=== PATIENT | female | born 1945 | race Caucasian/White ===

== ENCOUNTER → 2019-12-05 | Outpatient (CLI) | payer OTHER ==
[~2019-12-05] MED LIST: ACTOS PO; ADVAIR 100-501 EACH; ADVAIR 250-501 EACH INH; ALBUTEROL INHAL17 GM IH; ALEVE220 MG PO; ALPRAZOLAM PO; ALTACE PO; ALTACE5 M1; ASPIRIN81 M2 PO; BACTRIM DS TAB1 EACH PO; CLARITIN10 MG PO; COLACE100 MG PO; COUMADIN 2.5MG2.5 M1 PO; COUMADIN 5 MG TA5 M1 PO; CRESTOR5 MG PO; DILTIAZEM ER180 M1; DILTIAZEM ER180 M1 PO; FLEXERIL PO; HUMALOG100 UNIT/1; HUMALOG100 UNIT/1 SQ; IBUPROFEN 200200 M1 PO; IBUPROFEN 600600 M1 PO; INDAPAMIDE2.5 MG; INDAPAMIDE2.5 MG PO; LANTUS SC; LANTUS SUBQ; LEVBID0.375 MG PO; LEVOTHROID PO; LEVOTHYROXINE 0.1 MG PO; LEVOXYL88 MCG PO; LOZOL PO; LUMIGAN2.5 M1; MAGNESIUM400 M1 PO; MAXZIDE 75-501 EACH PO; MIRALAX17 G1 PO; NEXIUM40 MG PO; NORCO 5-325 TA1 EACH PO; NOVOLOG100 UNIT/1 SQ; PERCOCET 5-3251 EACH PO; PHILLIPS' COLO1 EACH PO; POTASSIUM20 PO; PRILOSEC 20 MG20 MG PO; SINGULAIR 10 MG10 M1 PO; SINGULAIR4 MG PO; SORINE 80 MG TA80 M1 PO; SOTALOL 120 MG120 MG PO; TIZANIDINE HCL4 MG PO; ULTRACET TABLET1 TAB PO; XANAX 0.25 MG0.25 MG PO; ZOFRAN ODT4 MG PO
[2019-12-05 16:10] LABS: CREATININE 0.8 mg/dL (0.6-1.3)
== END ==
LOC: M.CT 15:36
PROVIDERS: Internal Medicine
DX: K76.0 Fatty (change of) liver, not elsewhere classified (principal); K42.9 Umbilical hernia without obstruction or gangrene; J98.11 Atelectasis; I51.7 Cardiomegaly; I25.10 Atherosclerotic heart disease of native coronary artery without angina pectoris; N28.1 Cyst of kidney, acquired; M47.816 Spondylosis without myelopathy or radiculopathy, lumbar region; Z96.642 Presence of left artificial hip joint; Z90.710 Acquired absence of both cervix and uterus

== ENCOUNTER 2020-05-19 22:12 | Emergency (ER) | payer OTHER ==
[~2020-05-19] VITALS: Ht 162.6 cm; Wt 104.3 kg
[2020-05-19 22:38] LABS: URINE BILIRUBIN NEGATIVE (Negative); URINE BLOOD NEGATIVE (Negative); URINE CLARITY CLEAR; URINE COLOR YELLOW; URINE GLUCOSE-RANDOM NEGATIVE (Negative); URINE KETONES NEGATIVE (Negative); URINE LEUKOCYTES-REFLEX TRACE (Negative); URINE NITRITE-REFLEX NEGATIVE (Negative); URINE PROTEIN TRACE (Negative); URINE SPECIFIC GRAVITY 1.015 (1.005-1.030); URINE UROBILINOGEN 0.2 E.U./dl (0.2-1.0)
[2020-05-19] MEDS ORDERED: PROTONIX40 M2 PO (22:55)
[2020-05-19] MEDS ORDERED: XARELTO20 MG PO (22:55)
[2020-05-19] MEDS ORDERED: KRILL OIL500 MG PO (22:56)
[2020-05-19] MEDS ORDERED: REQUIP 0.25 M0.25 MG PO (22:56)
[2020-05-19] MEDS ORDERED: CENTRUM WOMEN1 EACH PO (22:57)
[2020-05-19 22:58] LABS: MUCUS None Seen strn/LPF (None Seen); SQUAMOUS 4-10 Moderate /LPF (0-3); URINE RBC None Seen /HPF (0-2); URINE WBC-REFLEX 0-5 Rare /HPF (0-5)
[2020-05-19] MEDS ORDERED: VITAMIN D31250 MC1 PO (22:58)
[2020-05-19 22:59] LABS: BACTERIA-REFLEX 1-9 Few /HPF (None Seen); CASTS None Seen /LPF (None Seen); CRYSTALS None Seen /LPF (None Seen)
[2020-05-19 23:02] LABS: ABSOLUTE EOSINOPHILS 0.1 thou/uL (0.0-0.7); ABSOLUTE LYMPHOCYTES 1.1 thou/uL (0.8-5.3); ABSOLUTE MONOCYTES 0.5 thou/uL (0.0-1.2); ABSOLUTE NEUTROPHILS 7.5 thou/uL (1.6-8.1); BASOPHILS 0.3 %; EOSINOPHILS 0.7 %; HEMATOCRIT 36.2 % (37.0-47.0); HEMOGLOBIN 11.9 gm/dL (12.0-15.0); LYMPHOCYTES 11.7 %; MCHC 32.8 g/dL (28.0-37.0); MCV 82.3 fL (80.0-100.0); MONOCYTES 5.7 %; MPV 8.5 fl. (7.2-11.1); NUCLEATED RBCS 0 /100WBC; PLATELET COUNT* 362 thou/uL (150-400); POLYS 81.6 %; RBC 4.39 mil/uL (4.20-5.00); RDW-CV 15.5 % (10.5-14.5); WBC 9.1 thou/uL (4.0-11.0)
[2020-05-19 23:21] LABS: CALCIUM 9.6 mg/dL (8.5-10.1); CREATININE 1.1 mg/dL (0.6-1.3); POTASSIUM 3.5 mmol/L (3.5-5.1)
[2020-05-19 23:30] LABS: ALBUMIN 3.4 g/dL (3.4-5.0); MAGNESIUM 1.7 mg/dL (1.8-2.4); TOTAL BILIRUBIN 0.4 mg/dL (<0.1-1.0); TOTAL PROTEIN 7.3 g/dL (6.4-8.2)
[2020-05-20] MEDS ORDERED: FLAGYL500 M1 PO (01:00)
[2020-05-20] MEDS ORDERED: REGLAN 10 MG TA10 MG PO (01:00)
[2020-05-20 01:30] VITALS: BP 161/88
== END 2020-05-20 01:34 | disposition home or self-care (01) ==
LOC: M.ERS 22:12
PROVIDERS: Emergency Medicine
DX: R10.32 Left lower quadrant pain (principal); I10 Essential (primary) hypertension; I48.91 Unspecified atrial fibrillation; E10.9 Type 1 diabetes mellitus without complications; E28.2 Polycystic ovarian syndrome; E03.9 Hypothyroidism, unspecified; K21.9 Gastro-esophageal reflux disease without esophagitis; K58.9 Irritable bowel syndrome, unspecified; J45.909 Unspecified asthma, uncomplicated; Z90.710 Acquired absence of both cervix and uterus; Z91.010 Allergy to peanuts; Z88.1 Allergy status to other antibiotic agents; Z88.6 Allergy status to analgesic agent; Z88.8 Allergy status to other drugs, medicaments and biological substances

== ENCOUNTER 2020-09-02 21:54 | Inpatient (IN) | payer OTHER ==
[~2020-09-02] VITALS: Ht 162.6 cm; Wt 104.3 kg
[~2020-09-02 21:54] MED LIST changes: +CENTRUM WOMEN1 EACH PO; +FLAGYL500 M1 PO; +KRILL OIL500 MG PO; -LEVOTHYROXINE 0.1 MG PO; +PROTONIX40 M2 PO; +REGLAN 10 MG TA10 MG PO; +REQUIP 0.25 M0.25 MG PO; +SYNTHROID100 MC1 PO; +VITAMIN D31250 MC1 PO; +XARELTO20 MG PO
[2020-09-02 21:59] VITALS: BP 150/51
[2020-09-02] MEDS ORDERED: MULTAQ 400 MG400 MG PO (22:23)
[2020-09-02 22:28] LABS: ABSOLUTE LYMPHOCYTES 1.5 thou/uL (0.8-5.3); ABSOLUTE MONOCYTES 0.5 thou/uL (0.0-1.2); ABSOLUTE NEUTROPHILS 5.2 thou/uL (1.6-8.1); BASOPHILS 0.6 %; EOSINOPHILS 0.7 %; HEMATOCRIT 27.9 % (37.0-47.0); HEMOGLOBIN 8.5 gm/dL (12.0-15.0); LYMPHOCYTES 21.1 %; MCH 21.9 pg (26.0-34.0); MCHC 30.3 g/dL (28.0-37.0); MCV 72.1 fL (80.0-100.0); MONOCYTES 6.5 %; MPV 8.2 fl. (7.2-11.1); NUCLEATED RBCS 0 /100WBC; PLATELET COUNT* 316 thou/uL (150-400); POLYS 71.1 %; RBC 3.87 mil/uL (4.20-5.00); RDW-CV 18.5 % (10.5-14.5); WBC 7.3 thou/uL (4.0-11.0)
[2020-09-02 22:40] LABS: CALCIUM 9.1 mg/dL (8.5-10.1); POTASSIUM 3.7 mmol/L (3.5-5.1)
[2020-09-02 22:45] LABS: ALBUMIN 3.3 g/dL (3.4-5.0); TOTAL BILIRUBIN 0.3 mg/dL (<0.1-1.0); TOTAL PROTEIN 6.9 g/dL (6.4-8.2)
[2020-09-02 22:53] LABS: HYPOCHROMASIA 1+; MICROCYTES 1+
[2020-09-02 22:54] LABS: ANISOCYTOSIS 1+; PLATELET ESTIMATE ADEQUATE; POLYCHROMASIA 1+
[2020-09-02 23:27] LABS: INR 1.3; PROTIME 13.5 Seconds (9.20-11.50)
[2020-09-02 23:48] LABS: URINE BILIRUBIN NEGATIVE (Negative); URINE BLOOD NEGATIVE (Negative); URINE CLARITY CLEAR; URINE COLOR YELLOW; URINE GLUCOSE-RANDOM NEGATIVE (Negative); URINE KETONES NEGATIVE (Negative); URINE LEUKOCYTES-REFLEX NEGATIVE (Negative); URINE NITRITE-REFLEX NEGATIVE (Negative); URINE PROTEIN TRACE (Negative); URINE SPECIFIC GRAVITY 1.025 (1.005-1.030); URINE UROBILINOGEN 0.2 E.U./dl (0.2-1.0)
[2020-09-03 00:55] VITALS: BP 141/58
[2020-09-03 01:40] VITALS: BP 149/48
[2020-09-03 07:50] VITALS: BP 152/46
[2020-09-03 09:27] LABS: CALCIUM 8.8 mg/dL (8.5-10.1); CREATININE 0.9 mg/dL (0.6-1.3)
[2020-09-03 09:28] LABS: POTASSIUM 4.7 mmol/L (3.5-5.1)
[2020-09-03 09:30] LABS: MAGNESIUM 1.9 mg/dL (1.8-2.4); PHOSPHORUS* 3.9 mg/dL (2.5-4.9)
--- NOTE | 2020-09-03 09:43 | EKG ---
[place] [address] ELECTROCARDIOGRAM REPORT Name: SUKHDEV BELLO Room: [address] ADM IN [facility]#: [id number] Admission: 09/02/20 Attend Phys: Amor Jimenez, Discharge: Date of : 47 Date of Service: 09/02/202207 Report #: [id number] THIS REPORT FOR: //name// [facility] ED Test Date: 2020-09-02 Test Time: 22:08:37 Pat Name: SUKHDEV BELLO Department: Room: [facility] Gender: F Rn Spine: MICHELLE : 1945 Requested By: Jo Valdez Order Number: [id number] MD: Sam Retana Measurements Intervals [place] Rate: 76 P: -72 ND: 193 QRS: -8 QRSD: 131 T: 52 QT: 448 QTc: 504 Interpretive Statements Sinus or ectopic atrial rhythm with first degree AV block Atrial premature complex Right bundle branch block Compared to ECG 04/10/2012 07:41:41 Ectopic atrial rhythm now present Atrial premature complex(es) now present Electronically Signed On 09-03-2020 9:42:52 BATCH TRUCKER by Sam Retana [email or web address] <ELECTRONICALLY SIGNED> By: Sam Retana MD, FACC 09/03/20 0942 07 07 Sam Retana MD, FACC /EPI
[2020-09-03 15:44] VITALS: BP 99/73
[2020-09-03 18:15] VITALS: BP 148/48
[2020-09-03 21:12] VITALS: BP 135/44
[2020-09-04 01:16] VITALS: BP 135/44
[2020-09-04 04:32] LABS: HEMOGLOBIN 7.3 gm/dL (12.0-15.0); MCHC 30.5 g/dL (28.0-37.0); MCV 72.1 fL (80.0-100.0); MPV 8.4 fl. (7.2-11.1); RBC 3.33 mil/uL (4.20-5.00); RDW-CV 18.4 % (10.5-14.5); WBC 6.9 thou/uL (4.0-11.0)
[2020-09-04 04:44] LABS: CALCIUM 8.7 mg/dL (8.5-10.1); CREATININE 0.9 mg/dL (0.6-1.3); POTASSIUM 4.1 mmol/L (3.5-5.1)
[2020-09-04 07:30] VITALS: BP 157/50
[2020-09-04 10:04] VITALS: BP 149/44; BP 152/48; BP 157/48; BP 161/52; BP 167/48
[2020-09-04 10:22] LABS: PROTIME 10.9 Seconds (9.20-11.50)
[2020-09-04 17:37] VITALS: BP 175/54
[2020-09-04 20:00] VITALS: BP 125/56
[2020-09-05 04:29] LABS: HEMATOCRIT 25.3 % (37.0-47.0); HEMOGLOBIN 7.9 gm/dL (12.0-15.0)
[2020-09-05 04:50] VITALS: BP 135/44
[2020-09-05 06:46] VITALS: BP 130/87; BP 131/46; BP 142/46
[2020-09-05 13:41] LABS: HEMOGLOBIN 8.8 gm/dL (12.0-15.0)
[2020-09-05 16:00] VITALS: BP 164/50
[2020-09-05 20:20] VITALS: BP 145/35
[2020-09-06] VITALS (7 sets, daily range): BP systolic 129–178; BP diastolic 38–62
[2020-09-06 05:07] LABS: HEMATOCRIT 24.1 % (37.0-47.0); HEMOGLOBIN 7.7 gm/dL (12.0-15.0)
[2020-09-07 04:07] LABS: HEMATOCRIT 24.6 % (37.0-47.0); HEMOGLOBIN 7.7 gm/dL (12.0-15.0)
[2020-09-07 07:30] VITALS: BP 168/39
[2020-09-07 15:47] VITALS: BP 136/41
[2020-09-07 21:25] VITALS: BP 170/38
[2020-09-08 07:15] VITALS: BP 127/30
[2020-09-08 12:16] VITALS: BP 132/37
[2020-09-08 15:45] VITALS: BP 152/42
[2020-09-08 20:30] VITALS: BP 127/29
[2020-09-08 23:36] VITALS: BP 134/51
[2020-09-09 06:15] VITALS: BP 149/39
[2020-09-09 07:45] VITALS: BP 137/35
[2020-09-09] MEDS ORDERED: CYCLOBENZAPRINE10 MG PO (08:33)
[2020-09-09] MEDS ORDERED: MIRALAX17 GM PO (08:33)
[2020-09-09] MEDS ORDERED: TRAMADOL 50 MG50 MG PO (08:33)
[2020-09-09 16:00] VITALS: BP 137/44
[2020-09-09 23:53] VITALS: BP 145/48
[2020-09-10 09:10] VITALS: BP 149/37
[2020-09-10 16:07] VITALS: BP 131/51
[2020-09-10 19:42] VITALS: BP 141/33
[2020-09-11 08:04] LABS: HEMATOCRIT 23.6 % (37.0-47.0); HEMOGLOBIN 7.4 gm/dL (12.0-15.0); MCH 24.3 pg (26.0-34.0); MCHC 31.4 g/dL (28.0-37.0); MCV 77.6 fL (80.0-100.0); MPV 7.5 fl. (7.2-11.1); RBC 3.05 mil/uL (4.20-5.00); RDW-CV 24.5 % (10.5-14.5); WBC 9.5 thou/uL (4.0-11.0)
[2020-09-11 08:08] LABS: CALCIUM 8.8 mg/dL (8.5-10.1); CREATININE 1.1 mg/dL (0.6-1.3); POTASSIUM 4.5 mmol/L (3.5-5.1)
[2020-09-11 08:10] VITALS: BP 128/50
[2020-09-11 16:00] VITALS: BP 141/61
[2020-09-11 20:30] VITALS: BP 131/45
[2020-09-12 07:15] VITALS: BP 124/32
[2020-09-12 16:20] VITALS: BP 111/20
[2020-09-12 16:50] VITALS: BP 135/74
[2020-09-12 19:40] VITALS: BP 129/22
[2020-09-12 22:00] VITALS: BP 142/39
[2020-09-13 04:40] VITALS: BP 137/32
[2020-09-13] MEDS ORDERED: VITAMIN D3-CAL1 EACH PO (06:41)
[2020-09-13 07:45] VITALS: BP 132/35
[2020-09-13 16:10] VITALS: BP 139/74
[2020-09-13 19:00] VITALS: BP 136/54
[2020-09-13 20:10] VITALS: BP 113/26
[2020-09-14 07:50] VITALS: BP 167/44
[2020-09-14 16:55] VITALS: BP 146/78
[2020-09-14 20:00] VITALS: BP 152/80
[2020-09-15 07:45] VITALS: BP 102/55
[2020-09-15 15:49] VITALS: BP 143/37
[2020-09-16 08:00] VITALS: BP 159/42
[2020-09-16 16:00] VITALS: BP 155/53
[2020-09-16 20:00] VITALS: BP 155/53
[2020-09-17 06:33] LABS: ALBUMIN 2.4 g/dL (3.4-5.0); CALCIUM 8.8 mg/dL (8.5-10.1); CREATININE 0.8 mg/dL (0.6-1.3); TOTAL BILIRUBIN 0.5 mg/dL (<0.1-1.0); TOTAL PROTEIN 6.3 g/dL (6.4-8.2)
[2020-09-17 06:34] LABS: POTASSIUM 5.5 mmol/L (3.5-5.1)
[2020-09-17 07:41] LABS: ABSOLUTE EOSINOPHILS 0.1 thou/uL (0.0-0.7); ABSOLUTE LYMPHOCYTES 0.8 thou/uL (0.8-5.3); ABSOLUTE MONOCYTES 0.5 thou/uL (0.0-1.2); BASOPHILS 0.6 %; EOSINOPHILS 1.2 %; HEMATOCRIT 27.1 % (37.0-47.0); HEMOGLOBIN 8.3 gm/dL (12.0-15.0); LYMPHOCYTES 15.6 %; MCH 24.6 pg (26.0-34.0); MCHC 30.7 g/dL (28.0-37.0); MCV 80.1 fL (80.0-100.0); MONOCYTES 9.5 %; MPV 7.7 fl. (7.2-11.1); NUCLEATED RBCS 0 /100WBC; PLATELET COUNT* 421 thou/uL (150-400); POLYS 73.1 %; RBC 3.38 mil/uL (4.20-5.00); RDW-CV 27.8 % (10.5-14.5); WBC 5.4 thou/uL (4.0-11.0)
[2020-09-17 08:25] VITALS: BP 151/59
[2020-09-17 09:12] LABS: ANISOCYTOSIS 2+; PLATELET ESTIMATE ADEQUATE
[2020-09-17 20:00] VITALS: BP 152/66
[2020-09-18 08:15] VITALS: BP 164/58
[2020-09-18 09:22] VITALS: BP 164/51
== END 2020-09-18 12:55 | DRG 481 ==
LOC: M.ERS 21:54 → M.TBA-ER 23:29 → M.3W 23:29
PROVIDERS: Emergency Medicine; Nurse Practitioner; Orthopaedic Surgery; ADMIT Internal Medicine; ATTEND Internal Medicine
PROC: 0QS904Z Reposition Left Femoral Shaft with Internal Fixation Device, Open Approach (ICD-10-PCS; principal; 2020-09-05)
DX: M80.052A Age-related osteoporosis with current pathological fracture, left femur, initial encounter for fracture (principal); E44.1 Mild protein-calorie malnutrition; D68.69 Other thrombophilia; J96.11 Chronic respiratory failure with hypoxia; J45.909 Unspecified asthma, uncomplicated; K21.9 Gastro-esophageal reflux disease without esophagitis; E03.9 Hypothyroidism, unspecified; E66.9 Obesity, unspecified; I48.91 Unspecified atrial fibrillation; E10.9 Type 1 diabetes mellitus without complications; D50.9 Iron deficiency anemia, unspecified; I10 Essential (primary) hypertension; F41.9 Anxiety disorder, unspecified; F44.4 Conversion disorder with motor symptom or deficit; Z20.828 Contact with and (suspected) exposure to other viral communicable diseases; Z85.42 Personal history of malignant neoplasm of other parts of uterus; Z90.710 Acquired absence of both cervix and uterus; Z92.21 Personal history of antineoplastic chemotherapy; Z92.3 Personal history of irradiation; Z79.4 Long term (current) use of insulin; Z79.899 Other long term (current) drug therapy; Z88.8 Allergy status to other drugs, medicaments and biological substances; Z88.1 Allergy status to other antibiotic agents; Z88.5 Allergy status to narcotic agent; Z91.018 Allergy to other foods; Z68.39 Body mass index [BMI] 39.0-39.9, adult; Z86.711 Personal history of pulmonary embolism

== ENCOUNTER → 2020-12-09 | Outpatient (CLI) | payer OTHER ==
[~2020-12-09] MED LIST changes: +CYCLOBENZAPRINE10 MG PO; +MIRALAX17 GM PO; +MULTAQ 400 MG400 MG PO; +TRAMADOL 50 MG50 MG PO; +VITAMIN D3-CAL1 EACH PO
== END ==
LOC: M.RAD 13:27
PROVIDERS: ATTEND Orthopaedic Surgery
DX: Z48.02 Encounter for removal of sutures (principal); S72.302D Unspecified fracture of shaft of left femur, subsequent encounter for closed fracture with routine healing; X58.XXXD Exposure to other specified factors, subsequent encounter

== ENCOUNTER → 2021-01-06 | Outpatient (CLI) | payer OTHER | LOC: M.RAD 11:54 | PROVIDERS: ATTEND Orthopaedic Surgery | DX: Z47.89 Encounter for other orthopedic aftercare (principal) ==

== ENCOUNTER → 2021-02-23 | Outpatient (CLI) | payer OTHER | LOC: M.WC 13:30 | PROVIDERS: ATTEND Podiatrist Foot & Ankle Surgery | DX: E11.621 Type 2 diabetes mellitus with foot ulcer (principal); I83.015 Varicose veins of right lower extremity with ulcer other part of foot; L89.890 Pressure ulcer of other site, unstageable; L97.511 Non-pressure chronic ulcer of other part of right foot limited to breakdown of skin; I83.025 Varicose veins of left lower extremity with ulcer other part of foot; L97.521 Non-pressure chronic ulcer of other part of left foot limited to breakdown of skin; E11.42 Type 2 diabetes mellitus with diabetic polyneuropathy; L84 Corns and callosities; H54.61 Unqualified visual loss, right eye, normal vision left eye; I25.10 Atherosclerotic heart disease of native coronary artery without angina pectoris; J42 Unspecified chronic bronchitis; I48.91 Unspecified atrial fibrillation; K21.9 Gastro-esophageal reflux disease without esophagitis; K58.9 Irritable bowel syndrome, unspecified; F41.9 Anxiety disorder, unspecified; Z86.711 Personal history of pulmonary embolism; Z79.01 Long term (current) use of anticoagulants; Z79.4 Long term (current) use of insulin; Z79.899 Other long term (current) drug therapy; Z98.49 Cataract extraction status, unspecified eye; Z98.890 Other specified postprocedural states ==

== ENCOUNTER → 2021-02-24 | Outpatient (CLI) | payer OTHER | LOC: M.ULTRA 13:00 | PROVIDERS: ATTEND Podiatrist Foot & Ankle Surgery | DX: L97.509 Non-pressure chronic ulcer of other part of unspecified foot with unspecified severity (principal); E11.622 Type 2 diabetes mellitus with other skin ulcer; R60.0 Localized edema ==

== ENCOUNTER → 2021-03-02 | Outpatient (CLI) | payer OTHER | LOC: M.WC 13:06 | PROVIDERS: ATTEND Podiatrist Foot & Ankle Surgery | DX: E11.621 Type 2 diabetes mellitus with foot ulcer (principal); I83.015 Varicose veins of right lower extremity with ulcer other part of foot; L89.890 Pressure ulcer of other site, unstageable; L97.511 Non-pressure chronic ulcer of other part of right foot limited to breakdown of skin; I83.025 Varicose veins of left lower extremity with ulcer other part of foot; L97.521 Non-pressure chronic ulcer of other part of left foot limited to breakdown of skin; E11.42 Type 2 diabetes mellitus with diabetic polyneuropathy; L84 Corns and callosities; H54.61 Unqualified visual loss, right eye, normal vision left eye; I25.10 Atherosclerotic heart disease of native coronary artery without angina pectoris; J42 Unspecified chronic bronchitis; I48.91 Unspecified atrial fibrillation; K21.9 Gastro-esophageal reflux disease without esophagitis; K58.9 Irritable bowel syndrome, unspecified; F41.9 Anxiety disorder, unspecified; Z86.711 Personal history of pulmonary embolism; Z79.01 Long term (current) use of anticoagulants; Z79.4 Long term (current) use of insulin; Z98.49 Cataract extraction status, unspecified eye; Z98.890 Other specified postprocedural states ==

== ENCOUNTER → 2021-03-09 | Outpatient (CLI) | payer OTHER | LOC: M.WC 13:07 | PROVIDERS: ATTEND Podiatrist Foot & Ankle Surgery | DX: E11.621 Type 2 diabetes mellitus with foot ulcer (principal); I83.015 Varicose veins of right lower extremity with ulcer other part of foot; L89.890 Pressure ulcer of other site, unstageable; L97.511 Non-pressure chronic ulcer of other part of right foot limited to breakdown of skin; I83.025 Varicose veins of left lower extremity with ulcer other part of foot; L97.521 Non-pressure chronic ulcer of other part of left foot limited to breakdown of skin; L84 Corns and callosities; E11.42 Type 2 diabetes mellitus with diabetic polyneuropathy; E11.36 Type 2 diabetes mellitus with diabetic cataract; H54.61 Unqualified visual loss, right eye, normal vision left eye; I25.10 Atherosclerotic heart disease of native coronary artery without angina pectoris; J42 Unspecified chronic bronchitis; I48.91 Unspecified atrial fibrillation; K21.9 Gastro-esophageal reflux disease without esophagitis; K58.9 Irritable bowel syndrome, unspecified; F41.9 Anxiety disorder, unspecified; Z86.711 Personal history of pulmonary embolism ==

== ENCOUNTER 2021-10-10 19:18 | Inpatient (IN) | payer OTHER ==
[~2021-10-10] VITALS: Ht 162.6 cm; Wt 112.9 kg
[2021-10-10 19:23] VITALS: BP 138/32
[2021-10-10] MEDS ORDERED: CRESTOR5 MG PO (19:28)
[2021-10-10] MEDS ORDERED: XARELTO20 MG PO (19:28)
[2021-10-10] MEDS ORDERED: NOVOLOG100 UNIT/M SUBQ (19:29)
[2021-10-10] MEDS ORDERED: LANTUS SUBQ (19:29)
[2021-10-10] MEDS ORDERED: LEVO-T100 MCG PO (19:30)
[2021-10-10] MEDS ORDERED: ALTACE2.5 MG PO (19:30)
[2021-10-10] MEDS ORDERED: ADVAIR 250-501 EACH INH (19:30)
[2021-10-10] MEDS ORDERED: TRAMADOL 50 MG50 MG PO (19:30)
[2021-10-10] MEDS ORDERED: MIRALAX119 GM PO (19:30)
[2021-10-10] MEDS ORDERED: DILTIAZEM 24HR180 M1 PO (19:30)
[2021-10-10] MEDS ORDERED: REQUIP 0.25 M0.25 M1 PO (19:31)
[2021-10-10] MEDS ORDERED: SINGULAIR 10 MG10 MG PO (19:31)
[2021-10-10] MEDS ORDERED: ALPRAZOLAM0.25 M1 PO (19:31)
[2021-10-10 20:33] LABS: ABSOLUTE BASOPHILS 0.1 thou/uL (0.0-0.2); ABSOLUTE LYMPHOCYTES 0.6 thou/uL (0.8-5.3); ABSOLUTE MONOCYTES 0.5 thou/uL (0.0-1.2); ABSOLUTE NEUTROPHILS 4.8 thou/uL (1.6-8.1); BASOPHILS 0.9 %; EOSINOPHILS 0.2 %; HEMATOCRIT 27.8 % (37.0-47.0); HEMOGLOBIN 8.4 gm/dL (12.0-15.0); LYMPHOCYTES 9.6 %; MCH 21.6 pg (26.0-34.0); MCHC 30.2 g/dL (28.0-37.0); MCV 71.7 fL (80.0-100.0); MONOCYTES 9.1 %; MPV 8.9 fl. (7.2-11.1); NUCLEATED RBCS 1 /100WBC; PLATELET COUNT* 320 thou/uL (150-400); POLYS 80.2 %; RBC 3.88 mil/uL (4.20-5.00); RDW-CV 19.4 % (10.5-14.5)
[2021-10-10 20:41] LABS: CALCIUM 9.5 mg/dL (8.5-10.1); CREATININE 1.9 mg/dL (0.6-1.3)
[2021-10-10 20:45] LABS: MAGNESIUM 2.6 mg/dL (1.8-2.4); TOTAL BILIRUBIN 0.4 mg/dL (<0.1-1.0); TOTAL PROTEIN 6.2 g/dL (6.4-8.2)
[2021-10-10 21:29] LABS: PLATELET ESTIMATE ADEQUATE
[2021-10-10 21:30] LABS: ANISOCYTOSIS 1+; MICROCYTES Occasional; POLYCHROMASIA Occasional
[2021-10-10 21:31] LABS: HYPOCHROMASIA 1+; MACROCYTES Occasional
[2021-10-10 22:22] LABS: BE 1.9 mmol/L (-2 to +3)
[2021-10-10 22:25] LABS: PCO2 55.4 mmHg (35.0-45.0); PO2 27.2 mmHg (75.0-100.0)
[2021-10-10 23:25] LABS: URINE BILIRUBIN NEGATIVE (Negative); URINE BLOOD 2+ (Negative); URINE CLARITY CLEAR; URINE COLOR YELLOW; URINE GLUCOSE-RANDOM NEGATIVE (Negative); URINE KETONES NEGATIVE (Negative); URINE LEUKOCYTES-REFLEX NEGATIVE (Negative); URINE NITRITE-REFLEX NEGATIVE (Negative); URINE PROTEIN NEGATIVE (Negative); URINE SPECIFIC GRAVITY 1.015 (1.005-1.030); URINE UROBILINOGEN 0.2 E.U./dl (0.2-1.0)
[2021-10-10 23:55] LABS: BE -1.1 mmol/L (-2 to +3); PCO2 46.6 mmHg (35.0-45.0); PO2 108.8 mmHg (75.0-100.0); pH 7.343 (7.340-7.450)
[2021-10-11 00:15] LABS: BACTERIA-REFLEX >30 Many /HPF (None Seen); COARSE GRANULAR CASTS 0-3 Few /LPF (None Seen); CRYSTALS None Seen /LPF (None Seen); FINE GRANULAR CASTS 4-10 Moderate /LPF (None Seen); HYALINE CASTS 4-10 Moderate /LPF (None Seen); MUCUS 4-6 Moderate strn/LPF (None Seen); SQUAMOUS 0-3 Few /LPF (0-3); URINE WBC-REFLEX 6-15 Few /HPF (0-5)
[2021-10-11 02:30] VITALS: BP 152/52
[2021-10-11 04:05] LABS: CALCIUM 9.5 mg/dL (8.5-10.1); CREATININE 1.6 mg/dL (0.6-1.3)
[2021-10-11 04:18] LABS: POTASSIUM 4.9 mmol/L (3.5-5.1)
[2021-10-11 06:10] VITALS: BP 116/77
[2021-10-11 10:25] VITALS: BP 165/57
--- NOTE | 2021-10-11 11:28 | EKG ---
[place] [address] ELECTROCARDIOGRAM REPORT Name: SUKHDEV BELLO Room: [place] [address] ADM IN [facility]#: [id number] Admission: 10/10/21 Attend Phys: Nola Nichols Discharge: Date of : 47 Date of Service: 10/10/212014 Report #: [id number] THIS REPORT FOR: //name// [facility] ED Test Date: 2021-10-10 Test Time: 20:15:27 Pat Name: SUKHDEV BELLO Department: Room: [facility] Gender: F Impregnator And Drier Helper: MICHELLE : 1945 Requested By: Cassidy Canas Order Number: [id number] MD: Sam Retana Measurements Intervals [place] Rate: 44 P: [place]: QRS: 8 QRSD: 131 T: 10 QT: 512 QTc: 438 Interpretive Statements Junctional rhythm Right bundle branch block Compared to ECG 09/02/2020 22:08:37 Junctional rhythm now present Ectopic atrial rhythm no longer present First degree AV block no longer present Atrial premature complex(es) no longer present Electronically Signed On 10-11-2021 11:28:15 TABLE INSPECTOR by Sam Retana [email or web address] <ELECTRONICALLY SIGNED> By: Sam Retana MD, FACC 10/11/21 1128 14 14 Sam Retana MD, FAC /EPI
[2021-10-11 14:25] VITALS: BP 158/49
[2021-10-11 18:22] VITALS: BP 158/49
[2021-10-11 18:40] LABS: INFLUENZA A ANTIGEN Negative (Negative); INFLUENZA B ANTIGEN Negative (Negative)
[2021-10-11 22:25] VITALS: BP 169/59
[2021-10-12] VITALS (7 sets, daily range): BP systolic 102–165; BP diastolic 48–65
[2021-10-12 05:53] LABS: ALBUMIN 2.7 g/dL (3.4-5.0); CREATININE 1.4 mg/dL (0.6-1.3); HEMATOCRIT 26.8 % (37.0-47.0); HEMOGLOBIN 8.3 gm/dL (12.0-15.0); MAGNESIUM 1.8 mg/dL (1.8-2.4); MCH 21.8 pg (26.0-34.0); MCHC 31.1 g/dL (28.0-37.0); MCV 70.2 fL (80.0-100.0); MPV 8.8 fl. (7.2-11.1); POTASSIUM 4.7 mmol/L (3.5-5.1); RBC 3.82 mil/uL (4.20-5.00); RDW-CV 19.2 % (10.5-14.5); TOTAL BILIRUBIN 0.4 mg/dL (<0.1-1.0); WBC 2.8 thou/uL (4.0-11.0)
--- NOTE | 2021-10-12 10:09 | CON ---
[address] [address] CONSULTATION Name: EUGENIASUKHDEV Fadumo Room: [place] [address] ADM IN [facility]#: [id number] Admission: 10/10/21 Attend Phys: Bari Givens Discharge: Date of : 47 Report #: [id number] THIS REPORT FOR: cc: Barbara Schrader MD, Lin W. MD Blick, David R. MD [facility] ~ cc: Barbara Schrader MD DATE OF CONSULTATION: 10/11/2021 CARDIOLOGY CONSULTATION HISTORY OF PRESENT ILLNESS: The patient is a 76-year-old white female who I was asked to see in the hospital today because of an abnormal ECG. The history is obtained from the patient. The patient primarily cared for at [facility]. She was actually admitted here to [facility] a year ago after she fractured her leg and required surgery. The patient has a long history of paroxysmal atrial fibrillation. She had an ablation by Dr. Jean in 2013, but had recurrent atrial fibrillation. She actually required cardioversion by Dr. Mclaughlin 6 months ago. She is not very active this time and uses a walker. She denies a history of chest pain, myocardial infarction. Yesterday, she noticed her heart rate was slow and her oxygenation was low. She called EMS and brought to [facility] and admitted. She complained of pain in the left leg. She does have chronic edema. She has been coughing. She is on Xarelto, but denied any bleeding. She denied any palpitations, syncope. She has a history of a heart murmur. PAST MEDICAL HISTORY: She has had uterine cancer with hysterectomy. She has had cataract extraction. She had surgery on her left leg in the past. She has a history of diabetes and hypertension. CURRENT MEDICATIONS: Consists of the following list. She is on Xarelto. She has a nebulizer at home. She is on Xanax, diltiazem, insulin, Synthroid, ramipril, Requip, Crestor. ALLERGIES: SHE HAS PREVIOUS INTOLERANCE TO SOTALOL AND AMIODARONE. FAMILY HISTORY: Her father of heart problems. SOCIAL HISTORY: She is . Used to take care of her . She lives here in [place] by herself. No smoking or alcohol use. REVIEW OF SYSTEMS: She has no history of stroke. She is obese, being 5 feet 4 inches, 215 pounds. She has a history of COPD. No kidney problems. No psychiatric illness. [place] [address] CONSULTATION Name: SUKHDEV BELLO Fadum[place] Room: [address] IN [facility]#: [id number] Admission: 10/10/21 Attend Phys: Bari Givens Discharge: Date of : 47 Report #: [id number] PHYSICAL EXAMINATION: GENERAL: Revealed an elderly obese female, lying in bed. She appeared in no acute distress. VITAL SIGNS: She had a blood pressure 140/60, pulse is 60. She is afebrile. HEENT: She was anicteric. Conjunctivae pink. Mucosa moist. NECK: Veins difficult to assess due to obesity. CHEST: Revealed decreased breath sounds at bases. HEART: Irregular rhythm. There was a grade 2 systolic ejection murmur. ABDOMEN: Obese. EXTREMITIES: Had trace edema. SKIN: Warm and dry. NEUROLOGIC: Nonfocal. LABORATORY DATA: Her ECG on admission showed what appeared to be in junctional rhythm at 44 beats per minute with a right bundle branch block. On the monitor last night, she did appear to have episodes of sinus rhythm with a first-degree AV block. Her workup, she had a portable chest x-ray last night that showed normal heart size, tortuous aorta, basilar opacities suggesting edema. She had a venous duplex scan of her legs because of edema that showed no DVT. Her lab work, sodium 132, creatinine 1.6, albumin 3.0. High sensitivity troponin was 76. TSH a year ago was 3.2. Her hemoglobin was only 8.4, it was 7.3 a year ago. Her COVID antigen stat test was negative. Urinalysis, 2+ blood, 1+ leukocytes, many bacteria. IMPRESSION AND RECOMMENDATIONS: 1. Episode of junctional rhythm. I would discontinue diltiazem. If she develops symptomatic bradycardia, she would require pacemaker. 2. History of atrial fibrillation. Previous ablation. The patient cannot tolerate sotalol or amiodarone. I would continue chronic anticoagulation with Xarelto. 3. Diabetes. The patient is on insulin. 4. Hypertension. The patient is on a calcium lamin and PAM inhibitor. 5. Hyperlipidemia. The patient is on a statin drug. 6. Obesity. 7. Chronic obstructive pulmonary disease. The patient uses inhalers. 8. Anemia. No history of bleeding. <ELECTRONICALLY SIGNED> By: Sam Retana MD, FACC 10/12/21 1009 0814 0841Davihaleigh Retana MD, FACC /nt
--- NOTE | 2021-10-12 12:33 | EKG ---
[place] [address] ELECTROCARDIOGRAM REPORT Name: SUKHDEV BELLO Room: [place] [address] ADM IN [facility]#: [id number] Admission: 10/10/21 Attend Phys: Nola Nichols Discharge: Date of : 47 Date of Service: 10/11/212220 Report #: [id number] THIS REPORT FOR: //name// [facility] ED Test Date: 2021-10-11 Test Time: 22:21:53 Pat Name: SUKHDEV BELLO Department: Room: [place] [address] Gender: F Weed Science Research Technician: [place] : 1945 Requested By: Cassidy Canas Order Number: [id number] MD: David Petty Measurements Intervals [place] Rate: 96 P: 58 ND: 211 QRS: 13 QRSD: 136 T: 19 QT: 395 QTc: 500 Interpretive Statements Sinus rhythm First-degree AV block Right bundle branch block Compared to ECG 10/10/2021 20:15:27 Junctional rhythm no longer present Electronically Signed On 10-12-2021 12:33:12 GLASS TECHNICIAN/INSTALLER by David Petty [email or web address] <ELECTRONICALLY SIGNED> By: David Petty MD, FACC 10/12/21 1233 20 20 David Petty MD, FAC /EPI
--- NOTE | 2021-10-12 12:34 | EKG ---
[place] [address] ELECTROCARDIOGRAM REPORT Name: SUKHDEV BELLO Room: [place] [address] ADM IN [facility]#: [id number] Admission: 10/10/21 Attend Phys: Nola Nichols Discharge: Date of : 47 Date of Service: 10/12/21 0145 Report #: [id number] THIS REPORT FOR: //name// [facility] ED Test Date: 2021-10-12 Test Time: 01:45:46 Pat Name: SUKHDEV BELLO Department: Room: [place] [address] Gender: F Test Facility Engineer: [place] : 1945 Requested By: Sam Retana Order Number: [id number] Celeste MD: David Petty Measurements Intervals [place] Rate: 134 P: MD: QRS: 3 QRSD: 135 T: 12 QT: 334 QTc: 499 Interpretive Statements Atrial fibrillation Right bundle branch block Compared to ECG 10/11/2021 22:21:53 Sinus rhythm no longer present Electronically Signed On 10-12-2021 12:34:03 WELDING MACHINE OPERATOR ELECTRO GAS by David Petty [email or web address] <ELECTRONICALLY SIGNED> By: David Petty MD, [facility] 10/12/21 1234 0145 0145 David Petty MD, [facility] /EPI
--- NOTE | 2021-10-12 16:16 | 2DMMODE ---
[place] [address] 2 D/M-MODE ECHOCARDIOGRAM Name: SUKHDEV BELLO Room: [place] [address] ADM IN [facility]#: [id number] Admission: 10/10/21 Attend Phys: Nola Nichols Discharge: Date of : 47 Date of Service: 10/12/21 1616 Report #: [id number] THIS REPORT FOR: cc: Barbara Schrader MD, Lin W. MD Holkins, John M. MD [facility] ~ APPROVED REPORT Study performed: 10/12/2021 13:56:38 EXAM: Comprehensive 2D, Doppler, and color-flow Echocardiogram Patient Location: In-Patient Room #: er Status: routine BSA: 2.01 HR: 103 bpm BP: 176/65 mmHg Rhythm: NSR Other Information Study Quality: Good Indications Atrial Fibrillation 2D Dimensions IVSd: 9.59 (7-11mm) LVOT Diam: 19.07 (18-24mm) LVDd: 47.56 mm PWd: 9.82 (7-11mm) Ascending Ao: 27.78 (22-36mm) LVDs: 29.30 (25-40mm) Aortic Root: 28.67 mm Volumes Left Atrial Volume (Systole) LA ESV Index: 51.00 mL/m2 Aortic Valve AoV Peak Ken.: 1.99 m/s AO Peak Gr.: 15.88 mmHg LVOT Max P.58 mmHg AO Mean Gr.: 8.35 mmHg LVOT Mean P.39 mmHg LVOT Max V: 0.80 m/s AO V2 VTI: 35.00 cm LVOT Mean V: 0.55 m/s HELDER (VTI): 1.19 cm2 LVOT V1 VTI: 14.54 [place] [address] 2 D/M-MODE ECHOCARDIOGRAM Name: SUKHDEV BELLO Room: [address] IN [facility]#: [id number] Admission: 10/10/21 Attend Phys: Nola Nichols Discharge: Date of : 47 Date of Service: 10/12/21 1616 Report #: [id number] Mitral Valve MV Mean Gr.: 6.95 mmHg MV Decel. Time: 223.93 ms MV PHT: 64.94 ms MVA (PHT): 3.39 cm2 TDI Medial E' Ken.: 0.09 m/s Lateral E' Ken.: 0.08 m/s Pulmonary Valve PV Peak Ken.: 0.97 m/s PV Peak Gr.: 3.73 mmHg Tricuspid Valve RAP Estimate: 10.00 mmHg TR Peak Gr.: 44.97 mmHg RVSP: 54.00 mmHg PA Pressure: 54.00 mmHg Left Ventricle The left ventricle is normal size. There is normal LV segmental wall motion. There is normal left ventricular wall thickness. Left ventricular systolic function is normal. The left ventricular ejection fraction is within the normal range. LVEF is 55-60%. Right Ventricle The right ventricle is normal size. The right ventricular systolic function is normal. Atria Left atrium is severely dilated. Right atrium is mildly dilated. Aortic Valve Moderate aortic valve sclerosis. No aortic regurgitation is present. Mild aortic stenosis. Mitral Valve Severe mitral annular calcification. Mild mitral regurgitation. Mild mitral stenosis. Tricuspid Valve The tricuspid valve is normal in structure. Mild tricuspid regurgitation. Moderate pulmonary hypertension. Pulmonic Valve The pulmonary valve is normal in [place] [address] 2 D/M-MODE ECHOCARDIOGRAM Name: SUKHDEV BELLO Room: [address] IN [facility]#: [id number] Admission: 10/10/21 Attend Phys: Nola Nichols Discharge: Date of : 47 Date of Service: 10/12/21 1616 Report #: [id number] regurgitation. Great Vessels The aortic root is normal in size. IVC is dilated and collapses >50% with inspiration. Pericardium There is no pericardial effusion. <Conclusion> The left ventricle is normal size. There is normal left ventricular wall thickness. Left ventricular systolic function is normal. The left ventricular ejection fraction is within the normal range. LVEF is 55-60%. The right ventricle is normal size. Left atrium is severely dilated. Right atrium is mildly dilated. Moderate aortic valve sclerosis. No aortic regurgitation is present. Mild aortic stenosis. Severe mitral annular calcification. Mild mitral regurgitation. Mild mitral stenosis. The tricuspid valve is normal in structure. Mild tricuspid regurgitation. Moderate pulmonary hypertension. IVC is dilated and collapses >50% with inspiration. There is no pericardial effusion. There is normal LV segmental wall motion. <ELECTRONICALLY SIGNED> By: David Petty MD, FACC 10/12/21 1616 15 15 David Petty MD, FACC /INF
[2021-10-13] VITALS (10 sets, daily range): BP systolic 109–166; BP diastolic 40–71
[2021-10-13 05:13] LABS: HEMATOCRIT 26.8 % (37.0-47.0); HEMOGLOBIN 8.2 gm/dL (12.0-15.0); MCH 21.5 pg (26.0-34.0); MCHC 30.4 g/dL (28.0-37.0); MCV 70.6 fL (80.0-100.0); MPV 8.6 fl. (7.2-11.1); RBC 3.79 mil/uL (4.20-5.00); RDW-CV 19.3 % (10.5-14.5); WBC 5.6 thou/uL (4.0-11.0)
[2021-10-13 06:18] LABS: ALBUMIN 2.8 g/dL (3.4-5.0); CALCIUM 9.1 mg/dL (8.5-10.1); CREATININE 1.3 mg/dL (0.6-1.3); MAGNESIUM 1.8 mg/dL (1.8-2.4); TOTAL BILIRUBIN 0.3 mg/dL (<0.1-1.0); TOTAL PROTEIN 5.9 g/dL (6.4-8.2)
[2021-10-13 06:27] LABS: POTASSIUM 3.6 mmol/L (3.5-5.1)
--- NOTE | 2021-10-13 17:34 | CARD ---
[address] [address] CARDIAC CATH REPORT Name: SUKHDEV BELLO Room: [address] ADM IN [facility]#: [id number] Admission: 10/10/21 Attend Phys: Bari Givens Discharge: Date of : 47 Report #: [id number] THIS REPORT FOR: cc: Barbara Schrader MD, Lin W. MD Liston, Michael J. MD [facility] ~ APPROVED REPORT Study performed: 10/13/2021 15:08:31 Patient Status: In-Patient Room #: 221 Event Personnel: Naya Shukla RN, Clary Salmon RTR, Lucero Peralta RTR [facility] Exam: Insertion of Dual Chamber Permanent Pacemaker The patient is a 76 year-old female with a history of . Patient Info BUN: 40 Creatine: 1.3 Conscious Sedation Start time: 1524 End Time: 1625 Fentanyl 200.0 mcg Versed 4.0 mg Fluoro time 3.8 min DAP 454.47 17 mGy Implanted Devices: Edora 8 LINETTE SN [id number] Solia S 53 Atrial Lead SN [id number] Solia S 60 Ventricular Lead SN [id number] Procedure The patient underwent informed consent. We discussed the details of the procedure including the risks, which include, but not limited to bleeding, infection, vascular damage, cardiac perforation, and pneumothorax. She understood these risks and was willing to proceed. As such, she was brought to the EP/Cardiac Catheterization laboratory in a fasting and sedated state and prepped and draped in a sterile fashion, received IV antibiotics prior to initiation of the procedure and a venogram was performed showing patency of the left axillary vein. The patient underwent conscious sedation, with no related complications. The patient was brought to the EP/[place] [address] CARDIAC CATH REPORT Name: SUKHDEV BELLO Room: [address] IN [facility].#: [id number] Admission: 10/10/21 Attend Phys: Bari Givens Discharge: Date of : 47 Report #: [id number] and the left chest and shoulder were prepped and draped in a sterile manner. During this case, Fluoroscopy and no contrast were used for imaging. IV conscious sedation was used throughout procedure with appropriate monitoring and was performed in the presence of a registered nurse who was an independent trained observer other than the physician performing the procedure. The left subclavian region was infiltrated with 2% Lidocaine with Epinephrine subcutaneous anesthesia. A transverse incision was made in the left upper chest cavity. The subcutaneous pocket was formed via blunt dissection. Percutaneous venous access was achieved and an introducer sheath was inserted into the left Subclavian vein. Sheaths were positions using the modified Seldinger technique Through the introducer sheaths the atrial and ventricular lead wires were positioned in the right atrial appendage and right ventricular apex respectively. Capturing and sensing thresholds were verified. Electrode Parameters P Wave: 2.2 mV R Wave: 14 mV Ventricular Threshold: 0.7 V at 0.40 ms Atrial Resistance: 558 ohms Ventricular Resistance: 768 ohms The patient was in atrial flutter therefore atrial thresholds were not checked. Dual Chamber The atrial and ventricular leads were then secured using 0 silk sutures. The subcutaneous pocket was irrigated with ancef antibiotic solution.The atrial and ventricular leads were attached to the appropriate receptacles on the pulse generator and set screws firmly tightened to insure adequate contact and stability. The lead and pulse generator were placed into the subcutaneous pocket. Sharp and sponge counts were confirmed to be correct. At this time the pocket was closed subcutaneously with a 2.0 Vicryl and the skin was closed with a 4.0 Vicryl. The operative site was dressed in sterile fashion with steri strips and the patient was transferred to the floor in stable condition. Complications The patient tolerated the procedure well and there were no complications [place] [address] CARDIAC CATH REPORT Name: SUKHDEV BELLO Room: [address] IN [facility]#: [id number] Admission: 10/10/21 Attend Phys: Bari Givens Discharge: Date of : 47 Report #: [id number] Findings Estimated Blood Loss: Minimal Conclusion 1. Sick sinus syndrome with paroxysmal atrial fibrillation. 2. Successful placement of a pacemaker with atrial and ventricular lead placement. Recommendations 1. Follow-up site check in 1 week. 2. Follow-up device interrogation in 1 to 2 months. <ELECTRONICALLY SIGNED> By: Ben Pastor MD, FACC 10/13/21 1734 1734 1734Michaebenny Pastor MD, FACC /INF
[2021-10-14] VITALS: BP 117/47
[2021-10-14 04:00] VITALS: BP 127/38
[2021-10-14] MEDS ORDERED: MULTAQ 400 MG400 MG PO (09:00)
[2021-10-14] MEDS ORDERED: DOXYCYCLINE 10100 MG PO (09:00)
[2021-10-14] MEDS ORDERED: DEXAMETHASONE 22 M1 PO (09:00)
[2021-10-14] MEDS ORDERED: LASIX 40 MG TAB40 M1 PO (09:00)
[2021-10-14] MEDS ORDERED: CEFDINIR300 MG PO (09:00)
[2021-10-14] MEDS ORDERED: DILTIAZEM 24HR180 M1 PO (09:00)
[2021-10-14 09:38] LABS: CALCIUM 9.2 mg/dL (8.5-10.1); CREATININE 1.1 mg/dL (0.6-1.3); POTASSIUM 3.6 mmol/L (3.5-5.1)
--- NOTE | 2021-10-14 10:57 | EKG ---
[place] [address] ELECTROCARDIOGRAM REPORT Name: SUKHDEV BELLO Room: [address] ADM IN ..#: [id number] Admission: 10/10/21 Attend Phys: Nola Nichols Discharge: Date of : 47 Date of Service: 10/14/21 0902 Report #: [id number] THIS REPORT FOR: //name// [facility] Test Date: 2021-10-14 Test Time: 09:02:54 Pat Name: SUKHDEV BELLO Department: Room: [address] Gender: F Curator Medical Museum: VAR[place] : 1945 Requested By: Ben Pastor Order Number: [id number] Celeste MD: David Petty Measurements Intervals [place] Rate: 90 P: 44 NM: 159 QRS: 7 QRSD: 132 T: 3 QT: 392 QTc: 480 Interpretive Statements Sinus rhythm with PACs at a rare PVC Right bundle branch block Compared to ECG 10/12/2021 01:45:46 Ventricular premature complex(es) now present Atrial fibrillation no longer present Electronically Signed On 10-14-2021 10:57:44 CRITICAL CARE SPECIALIST by David Petty [email or web address] <ELECTRONICALLY SIGNED> By: David Petty MD, FACC 10/14/21 1057 1 09 David Petty MD, FACC /EPI
[2021-10-14 11:22] VITALS: BP 154/71
[2021-10-14] MEDS ORDERED: TESSALON PERLE100 MG PO (14:26)
[2021-10-14] MEDS ORDERED: GABAPENTIN100 MG PO (14:26)
[2021-10-14 17:23] VITALS: BP 125/94
[2021-10-14 17:41] VITALS: BP 125/94
== END 2021-10-14 18:50 | disposition home health service (06) | DRG 242 ==
LOC: M.ERS 19:18 → M.TBA-ER 22:25 → M.2W 10-12 20:45
PROVIDERS: Internal Medicine; Personal Emergency Response Attendant; ADMIT Internal Medicine; ATTEND Internal Medicine
PROC: 02HK3JZ Insertion of Pacemaker Lead into Right Ventricle, Percutaneous Approach (ICD-10-PCS; principal; 2021-10-13)
PROC: 02H63JZ Insertion of Pacemaker Lead into Right Atrium, Percutaneous Approach (ICD-10-PCS; principal; 2021-10-13)
PROC: 0JH606Z Insertion of Pacemaker, Dual Chamber into Chest Subcutaneous Tissue and Fascia, Open Approach (ICD-10-PCS; principal; 2021-10-13)
DX: I49.5 Sick sinus syndrome (principal); J15.6 Pneumonia due to other Gram-negative bacteria; J96.01 Acute respiratory failure with hypoxia; N17.0 Acute kidney failure with tubular necrosis; I50.33 Acute on chronic diastolic (congestive) heart failure; E87.5 Hyperkalemia; E11.9 Type 2 diabetes mellitus without complications; E03.9 Hypothyroidism, unspecified; K21.9 Gastro-esophageal reflux disease without esophagitis; Z79.01 Long term (current) use of anticoagulants; Z88.8 Allergy status to other drugs, medicaments and biological substances; I11.0 Hypertensive heart disease with heart failure; E66.9 Obesity, unspecified; Z71.3 Dietary counseling and surveillance; I48.0 Paroxysmal atrial fibrillation; Z20.822 Contact with and (suspected) exposure to COVID-19

== ENCOUNTER 2021-12-07 17:52 | Emergency (ER) | payer OTHER ==
[~2021-12-07] VITALS: Ht 162.6 cm; Wt 104.3 kg
[~2021-12-07 17:52] MED LIST changes: +ALPRAZOLAM0.25 M1 PO; +ALTACE2.5 MG PO; +CEFDINIR300 MG PO; +DEXAMETHASONE 22 M1 PO; +DILTIAZEM 24HR180 M1 PO; +DOXYCYCLINE 10100 MG PO; +GABAPENTIN100 MG PO; +LASIX 40 MG TAB40 M1 PO; +LEVO-T100 MCG PO; +MIRALAX119 GM PO; +NOVOLOG100 UNIT/M SUBQ; +REQUIP 0.25 M0.25 M1 PO; +SINGULAIR 10 MG10 MG PO; +TESSALON PERLE100 MG PO
[2021-12-07 18:18] LABS: ABSOLUTE LYMPHOCYTES 0.8 thou/uL (0.8-5.3); ABSOLUTE MONOCYTES 0.5 thou/uL (0.0-1.2); ABSOLUTE NEUTROPHILS 4.6 thou/uL (1.6-8.1); BASOPHILS 0.4 %; EOSINOPHILS 0.4 %; HEMATOCRIT 31.6 % (37.0-47.0); HEMOGLOBIN 9.3 gm/dL (12.0-15.0); LYMPHOCYTES 12.9 %; MCH 20.3 pg (26.0-34.0); MCHC 29.3 g/dL (28.0-37.0); MCV 69.3 fL (80.0-100.0); MONOCYTES 7.8 %; MPV 7.9 fl. (7.2-11.1); NUCLEATED RBCS 0 /100WBC; PLATELET COUNT* 327 thou/uL (150-400); POLYS 78.5 %; RBC 4.56 mil/uL (4.20-5.00); RDW-CV 21.5 % (10.5-14.5); WBC 5.8 thou/uL (4.0-11.0)
[2021-12-07 18:39] LABS: LIPASE 35 U/L (73-393)
[2021-12-07 18:53] LABS: URINE BILIRUBIN NEGATIVE (Negative); URINE BLOOD NEGATIVE (Negative); URINE CLARITY CLEAR; URINE COLOR YELLOW; URINE GLUCOSE-RANDOM NEGATIVE (Negative); URINE KETONES NEGATIVE (Negative); URINE LEUKOCYTES-REFLEX NEGATIVE (Negative); URINE NITRITE-REFLEX NEGATIVE (Negative); URINE PROTEIN NEGATIVE (Negative); URINE UROBILINOGEN 0.2 E.U./dl (0.2-1.0)
[2021-12-07 19:01] LABS: CALCIUM 9.1 mg/dL (8.5-10.1); POTASSIUM 3.7 mmol/L (3.5-5.1)
[2021-12-07 19:03] LABS: POLYCHROMASIA 1+
[2021-12-07 19:04] LABS: HYPOCHROMASIA 3+
[2021-12-07 19:05] LABS: ANISOCYTOSIS 2+; PLATELET ESTIMATE ADEQUATE
[2021-12-07 19:06] LABS: MICROCYTES 2+; TOTAL BILIRUBIN 0.5 mg/dL (<0.1-1.0); TOTAL PROTEIN 6.5 g/dL (6.4-8.2)
[2021-12-07 22:45] VITALS: BP 173/89
--- NOTE | 2021-12-08 14:49 | EKG ---
[place] [address] ELECTROCARDIOGRAM REPORT Name: SUKHDEV BELLO Room: [facility]#: [id number] Admission: 12/07/21 Attend Phys: Discharge: 12/07/21 Date of : 47 Date of Service: 12/07/211821 Report #: [id number] THIS REPORT FOR: //name// [facility] ED Test Date: 2021-12-07 Test Time: 18:22:07 Pat Name: SUKHDEV BELLO Department: Room: Gender: F Materials And Processes Manager: : 1945 Requested By: Jennifer Lucio Order Number: [id number] MD: Sam Retana Measurements Intervals [place] Rate: 80 P: DC: 207 QRS: 32 QRSD: 134 T: 28 QT: 466 QTc: 538 Interpretive Statements Atrial-paced complexes pac ventricular sensed and paced beat noted Right bundle branch block Compared to ECG 10/14/2021 09:02:54 atrial and ventricular paced beats noted Ventricular premature complex(es) no longer present Electronically Signed On 12-08-2021 14:48:58 MECHANICAL ARTIST by Sam Retana [email or web address] <ELECTRONICALLY SIGNED> By: Sam Retana MD, [facility] 12/08/21 1448 182 21 Sam Retana MD, [facility] /EPI
== END 2021-12-07 22:45 | disposition home or self-care (01) ==
LOC: M.ERS 17:52
PROVIDERS: Student in an Organized Health Care Education/Training Program
DX: R53.1 Weakness (principal); Z20.822 Contact with and (suspected) exposure to COVID-19; R11.0 Nausea; I48.91 Unspecified atrial fibrillation; I10 Essential (primary) hypertension; E03.9 Hypothyroidism, unspecified; K21.9 Gastro-esophageal reflux disease without esophagitis; J45.909 Unspecified asthma, uncomplicated; Z90.710 Acquired absence of both cervix and uterus; Z85.89 Personal history of malignant neoplasm of other organs and systems; Z88.5 Allergy status to narcotic agent; Z88.1 Allergy status to other antibiotic agents; Z88.8 Allergy status to other drugs, medicaments and biological substances